=== PATIENT | male | born 1970 | race African-American/Black ===

== ENCOUNTER 2022-04-06 11:47 | Emergency (ER) | payer MEDICARE, MEDICAID ==
[~2022-04-06] VITALS: Ht 175.3 cm; Wt 84.0 kg
[2022-04-06] MEDS ORDERED: NITROGLYCERIN 0.4MG TABLET SL SL PRN (12:30)
[2022-04-06] MEDS ORDERED: ASPIRIN 81MG TABLET PO ONE (12:30)
[2022-04-06 13:10] LABS: BASOPHILS % 0.3 % (0.0-2.0); EOSINOPHILS % 3.3 % (0.0-5.0); HEMOGLOBIN. 15.1 g/dL (14.0-18.0); LYMPHOCYTES % 46.5 % (20.0-50.0); MEAN CORPUSCULAR HEMOGLOBIN 29.8 pg (28.0-32.0); MEAN CORPUSCULAR VOLUME 86.7 fL (80.0-94.0); MEAN PLATELET VOLUME 9.4 fl (7.4-10.4); MONOCYTES % 7.6 % (2.0-8.0); NEUTROPHILS % 42.3 % (40.0-76.0); PLATELET 204 x1000/uL (130-400); RED BLOOD CELL COUNT 5.07 mill/uL (4.7-6.1); RED CELL DISTRIBUTION WIDTH 13.5 % (11.6-14.6)
[2022-04-06 13:16] LABS: CHLORIDE 106 mEq/L (98-107)
[2022-04-06 13:20] VITALS: BP 118/77
== END 2022-04-06 16:10 | disposition home or self-care (01) ==
LOC: ER 11:47
DX: R07.89 Other chest pain (principal); I10 Essential (primary) hypertension; I25.2 Old myocardial infarction; I34.1 Nonrheumatic mitral (valve) prolapse
CPT/HCPCS: 36415; 71045; 80053; 83880; 84484; 85025; 93005; 99285

== ENCOUNTER 2022-04-12 23:36 | Emergency (ER) | payer MEDICARE, MEDICAID ==
[~2022-04-12] VITALS: Ht 175.3 cm; Wt 95.3 kg
[2022-04-13 03:08] LABS: BASOPHILS % 0.3 % (0.0-2.0); EOSINOPHILS % 2.6 % (0.0-5.0); HEMATOCRIT. 44.3 % (42.0-52.0); LYMPHOCYTES % 39.2 % (20.0-50.0); MEAN CORPUSCULAR VOLUME 85.7 fL (80.0-94.0); MEAN PLATELET VOLUME 8.9 fl (7.4-10.4); MONOCYTES % 7.9 % (2.0-8.0); PLATELET 211 x1000/uL (130-400); RED BLOOD CELL COUNT 5.17 mill/uL (4.7-6.1); RED CELL DISTRIBUTION WIDTH 13.4 % (11.6-14.6)
[2022-04-13 03:13] LABS: CHLORIDE 104 mEq/L (98-107)
[2022-04-13 04:03] VITALS: BP 134/68
== END 2022-04-13 04:04 | disposition home or self-care (01) ==
LOC: ER 23:36
DX: R07.89 Other chest pain (principal); F41.9 Anxiety disorder, unspecified; I25.2 Old myocardial infarction
CPT/HCPCS: 36415; 71045; 80053; 84484; 85025; 93005; 99285